=== PATIENT | female | born 1995 | race Caucasian/White ===

== ENCOUNTER 2023-12-21 16:00 | Emergency (ER) | payer BC, SELFPAY ==
--- NOTE | 2023-12-21 16:18 | ED.GENADULT ---
HPI - General Adult General Chief complaint: Urogenital-Female Stated complaint: UTI/YEAST SYPTOMS Time Seen by Provider: 12/21/23 16:18 Source: patient, RN notes reviewed and old records reviewed Mode of arrival: ambulatory Limitations: no limitations History of Present Illness HPI narrative: 28-year-old female [facility] for complaint of vaginal discharge and skin irritation of vagina and anus for 2 weeks. Patient reports recent treatment for urinary tract infection Pyridium, Macrobid and Metrogel. Patient denies urinary frequency, urgency hesitancy, incontinence. Patient denies abdominal pain, new lesions or concern for STI. Related Data Home Medications Medication Instructions Recorded Confirmed clindamycin phosphate 2 % vaginal 1 applic vaginal DIRECTED 12/21/23 12/21/23 cream epinephrine 0.3 mg/0.3 mL 0.3 mg IM DIRECTED 12/21/23 12/21/23 injection, auto-injector hydroxyzine HCl 25 mg tablet 25 mg PO DIRECTED 12/21/23 12/21/23 Allergies Allergy/AdvReac Type Severity Reaction Status Date / Time Penicillins Allergy Rash Verified 12/21/23 16:32 sulfamethoxazole Allergy Rash Verified 12/21/23 16:33 [From Sulfamethoxazole-Trimethoprim] trimethoprim Allergy Rash Verified 12/21/23 16:33 [From Sulfamethoxazole-Trimethoprim] Review of Systems Review of Systems: All systems reviewed & are unremarkable except as noted in HPI and below Constitutional: Constitutional: Reports no additional constitutional complaints Eyes: Eyes: Reports no additional eye complaints ENT: Reports system reviewed and no additional complaints, except as documented Cardiovascular: Cardiovascular: Reports no additional cardiovascular complaints, Denies chest pain and Denies dyspnea Respiratory: Respiratory: Reports no additional respiratory complaints, Denies cough and Denies dyspnea Genitourinary: Genitourinary: Reports as per HPI, Denies abnormal vaginal bleeding, Denies hematuria, Denies urinary frequency, Denies genital lesions, Reports vaginal discharge and Reports other ( Vaginal and anal irritation/burning, not during urination) Musculoskeletal: Musculoskeletal: Reports no additional musculoskeletal complaints Neurologic: Reports system reviewed and no additional complaints, except as documented Psychiatric: Psychiatric: Reports no additional psychiatric complaints PMFSH Comments At the time of my signature, I reviewed and agree with the nursing past medical, surgical, social, and family history. There is no relevant family history pertinent to the patient complaint. Exam Const: General: cooperative, healthy appearing, comfortable, no acute distress, alert and well nourished Nutritional Appearance: well nourished Orientation/consciousness: patient oriented x3 Limitations: no limitations HENMT: Head: normal to inspection Ears: external ears normal Face/Nose/Sinus: Normal external nose present, Normal nares present, normal facial exam, No erythema and No edema Face and sinus: normal facial exam, no erythema and no edema Mouth: Yes Normal oral and palatal mucosa present Eyes: General: appearance normal, both eyes and all related structures Neck: Neck: normal visual inspection, full ROM and no meningeal signs Lymphatic: no lymphadenopathy noted and no lymphedema noted Chest: Chest palpation & inspection: normal inspection of the chest Resp: Effort & Inspection: normal respiratory effort and able to speak in complete sentences Auscultation: clear to auscultation bilaterally Cardio: Jugular venous distension: no JVD Rate: regular rate Rhythm: regular rhythm : General: Yes no CVA tenderness External Female Exam: erythema, externally tender, external swelling and No lesion Back/Spine/Pelvis: Cervical Spine: cervical ROM normal Skin: General skin exam: normal color, no rashes or lesions noted and turgor normal Neuro: General: patient oriented x3, gait normal, moves all extremit
== END 2023-12-21 17:01 | disposition home or self-care (01) ==
PROVIDERS: Emergency Provider Nurse Practitioner Family
DX: B37.31 Acute candidiasis of vulva and vagina (principal)
CPT/HCPCS: 81003; 87086; 99213; G0463

== ENCOUNTER 2023-12-25 12:19 | Emergency (ER) | payer BC, SELFPAY ==
[2023-12-25 12:42] VITALS: BP 111/67; PULSE 80; RESP 16; TEMP 37; O2SAT 99
--- NOTE | 2023-12-25 19:20 | ED.GENADULT ---
HPI - General Adult General Chief complaint: Urogenital-Female Stated complaint: Yeast Infection Symptoms Time Seen by Provider: 12/25/23 13:26 Source: patient, RN notes reviewed and old records reviewed Mode of arrival: ambulatory Limitations: no limitations History of Present Illness HPI narrative: 28-year-old female to [facility] for complaint of vaginal irritation and burning. Patient was seen here 4 days ago and treated for a yeast infection. Patient reports that she took Diflucan as prescribed and is still having vaginal burning throughout the day, not specifically when urinating. Patient endorses all other symptoms of her yeast infection including itching have resolved. Patient states that she did use [id number] intravaginal Monistat Tuesday night in attempt to speed along her recovery. Patient requesting urinalysis in triage. Patient denies urinary changes or complaints, abdominal pain, fever, nausea, dysuria, flank pain. Related Data Home Medications Medication Instructions Recorded Confirmed clindamycin phosphate 2 % vaginal 1 applic vaginal DIRECTED 12/21/23 12/21/23 cream epinephrine 0.3 mg/0.3 mL 0.3 mg IM DIRECTED 12/21/23 12/21/23 injection, auto-injector hydroxyzine HCl 25 mg tablet 25 mg PO DIRECTED 12/21/23 12/21/23 Allergies Allergy/AdvReac Type Severity Reaction Status Date / Time Penicillins Allergy Rash Verified 12/25/23 12:59 sulfamethoxazole Allergy Rash Verified 12/25/23 12:59 [From Sulfamethoxazole-Trimethoprim] trimethoprim Allergy Rash Verified 12/25/23 12:59 [From Sulfamethoxazole-Trimethoprim] Review of Systems Review of Systems: All systems reviewed & are unremarkable except as noted in HPI and below Constitutional: Constitutional: Reports no additional constitutional complaints Eyes: Eyes: Reports no additional eye complaints ENT: Reports system reviewed and no additional complaints, except as documented Cardiovascular: Cardiovascular: Reports no additional cardiovascular complaints, Denies chest pain and Denies dyspnea Respiratory: Respiratory: Reports no additional respiratory complaints, Denies cough and Denies dyspnea Genitourinary: Genitourinary: Reports as per HPI, Denies urinary frequency, Denies post void dribbling, Denies nocturia, Denies genital pruritis, Denies genital lesions, Denies urinary hesitancy, Denies urinary urgency, Denies vaginal odor and Reports other ( irritation of vaginal skin) Musculoskeletal: Musculoskeletal: Reports no additional musculoskeletal complaints Neurologic: Reports system reviewed and no additional complaints, except as documented Psychiatric: Psychiatric: Reports no additional psychiatric complaints PMFSH Comments At the time of my signature, I reviewed and agree with the nursing past medical, surgical, social, and family history. There is no relevant family history pertinent to the patient complaint. Exam Const: General: cooperative, healthy appearing, comfortable, no acute distress, alert and well nourished Nutritional Appearance: well nourished Orientation/consciousness: patient oriented x3 Limitations: no limitations HENMT: Head: normal to inspection Ears: external ears normal Face/Nose/Sinus: Normal external nose present, Normal nares present, normal facial exam, No erythema and No edema Face and sinus: normal facial exam, no erythema and no edema Mouth: Yes Normal oral and palatal mucosa present Eyes: General: appearance normal, both eyes and all related structures Neck: Neck: normal visual inspection, full ROM and no meningeal signs Lymphatic: no lymphadenopathy noted and no lymphedema noted Chest: Chest palpation & inspection: normal inspection of the chest Resp: Effort & Inspection: normal respiratory effort and able to speak in complete sentences Auscultation: clear to auscultation bilaterally Cardio: Jugular venous distension: no JVD Rate: regular rate Rhythm: re
== END 2023-12-25 13:26 | disposition home or self-care (01) ==
PROVIDERS: Emergency Provider Nurse Practitioner Family
DX: B37.31 Acute candidiasis of vulva and vagina (principal)
CPT/HCPCS: 99213; G0463